=== PATIENT | female | born 1970 | race Asian ===

== ENCOUNTER 2024-02-21 13:18 | Emergency (ER) | payer BC, SELFPAY ==
[2024-02-21 13:21] VITALS: BP 139/93
--- NOTE | 2024-02-21 14:06 | ED.GENMED ---
History of Present Illness
General
Chief Complaint: Heart Rate Problem
Source: patient
Time Seen by Provider: 02/21/24 13:42
History of Present Illness
History of Present Illness:
53-year-old female presents emergency department with a wide range of complaints that have been ongoing for a long period of time. She just returned from [place] yesterday. She reports episodes of 'strange needles' that spread across her chest from
time to time, most recently a few days ago. However, about 2 hours ago she said she felt like something was kind of like 'stuck' in the upper part of her chest, now almost fully resolved associated with slight dyspnea. She is jet lag and said that
yesterday her heart was racing, not associated with chest pain, lightheadedness, or other complaints. She also notes that she just feels a vague subtle sense of numbness around her lips and tongue for the last few hours as well. No leg swelling,
pleuritic chest pain, fever, chills, cough, swelling
Past History
Past History
ED Past Medical History: None
ED Past Surgical History: None
Social History
Tobacco: Non-smoker
Drug: None
Personal:
Living: with family
Employment: Employed
Phy Exam
Physical Exam
Physical Exam:
aao times three, in nad
PERRL, mmm, o/p clear
neck supple
hrt rrr, no m/g/r
lung cta
abd soft, nt, nd
extrem no c/c/e
skin warm, well perfused
psych appropriate
neuro intact
Scores
Heart Score for Chest Pain Patients
STEMI patient?: No
History: Slightly or Non-Suspicious
ECG: Nonspecific Repolarization
Age: >45 - <65 years
Risk Factors: No Risk Factors
Troponin: </= Normal Limit
Heart Score for Chest Pain Patients: 2
Heart Score Risk: 2.5% MACE over next 6 weeks
Course
Orders/Labs/Results
Orders:
Orders
02/21/24 13:23
EKG [Electrocardiogram (*1)] Urgent
Reason for Study: Palpitations
EKG- Treatment ONCE
02/21/24 14:03
Cardiac Monitoring- Treatment ONCE
Pulse Ox/cont/shift [RESP] Stat
Quantity: 1
02/21/24 14:08
Complete Blood Count/No Diff Urgent
Comprehensive Metabolic Panel Urgent
Magnesium Urgent
TSH Urgent
02/21/24 14:16
D-Dimer Urgent
Troponin I Urgent
02/21/24 17:15
Troponin I Urgent
Abnormal Lab Results
02/21/24
14:08
RBC 3.95 L 10^6/uL
(4.20-5.40)
Hct 36.6 L %
(37.0-47.0)
MCH 31.9 H pg
(27.0-31.0)
Glucose 114 H mg/dl
(70-99)
02/21/24 14:08
02/21/24 14:08
Vital Signs
Initial and Last Documented VS:
Initial Vital Signs
Temp Pulse Resp BP Pulse Ox
98.1 F 77 18 139/93 97
02/21/24 13:21 02/21/24 13:21 02/21/24 13:21 02/21/24 13:21 02/21/24 13:21
Last Documented Vital Signs
Temp Pulse Resp BP Pulse Ox
98.1 F 59 14 113/74 98
02/21/24 13:21 02/21/24 15:31 02/21/24 15:31 02/21/24 15:31 02/21/24 15:31
Update Note
Update Note:
Patient presents to the Emergency Department with palpitations, chest discomfort
Number and Complexity of Problems Addressed at the Encounter
� Chronic conditions affecting care:
� Acute Exacerbation and/or Progression of Chronic Illness:
� Differential Diagnosis includes: but not limited to electrolyte disturbance, pe, acs, pleurisy, etc.
Amount and/or Complexity of Data to be Reviewed and Analyzed
� I performed an independent evaluation of and my interpretation is:
EKG:read by me, nsr, nl rate, nl axis, no ischemia
CT:
Xrays:
Laboratory Studies:
Other:
� Review of other/old records reveals:
� Clinical information was obtained by an independent historian:
� Prescriptions/Medications Considered but not given:
� Further testing considered but not performed:
Risk of Complications and/or Morbidity or Mortality of Patient Management
� Social determinants of health affecting care:
� Discussion with other providers (PCP, Hospitalists, Consultants, etc):
� Escalation of care including admission/observation vs risk of discharge considered:
ED Attending Note
-
Portions of this chart may have been created with voice recognition software.� Occasional wrong word or��sound alike� substitutions may have occurred due to the inherent limitations of voice recognition software.
Discharge Plan
Departure
Patient with high blood pressure during this ER visit?: Yes
Condition: Good
Discharge Problem:
Chest pain, palpitations
Instructions: Palpitations (DC), BLOOD PRESSURE, Chest Pain
Prescriptions:
No Action
silver sulfadiazine [SSD] 1 APPLIC cream
1 applic topical DAILY Qty: 50 0RF
hydrocodone-acetaminophen 5 MG/500 MG tablet
1 tab PO .Q4-6HPRN PRN (Reason: PAIN) Qty: 20 0RF
Referrals:
Harman Graf MD [Active] - Next open appointment
Hong Newman MD [Family Provider] - Follow up in 2-3 days
Activity Restrictions/Additional Instructions:
IF YOU DEVELOP INCREASING/NEW/PERSISTENT PAIN, FEVER, VOMITING, DIZZINESS, SWELLING, TROUBLE BREATHING OR OTHER WORRISOME SIGNS, GO TO THE ER IMMEDIATELY!
Interventions
Interventions:
*Risk Screen - Suicide Last Done: 02/21/24 13:21
*General Assessment Last Done: 02/21/24 13:21
*Neglect/Abuse Screening Last Done: 02/21/24 13:21
*ED COVID-19 Vaccine History Last Done: 02/21/24 13:21
ED- Cardiac Assessment Last Done: 02/21/24 14:14
ED- Pulmonary Assessment Last Done: 02/21/24 14:14
Discharge Date and Time
Print Language: SERBIAN
[2024-02-21 14:13] VITALS: BMI 21.4
[2024-02-21 14:24] LABS: Hematocrit 36.6 % (37.0-47.0); Hemoglobin 12.6 g/dL (12.0-16.0); Mean Corp Hgb Conc. 34.4 g/dL (33.0-37.0); Mean Corpuscular Hgb 31.9 pg (27.0-31.0); Mean Corpuscular Volume 92.7 fL (81.0-99.0); Mean Platelet Volume 8.3 fL (7.4-10.4); Platelet Count 348 10^3/uL (130-400); Red Blood Cell Count 3.95 10^6/uL (4.20-5.40); Red Cell Dist. Width 12.4 % (11.5-14.5); White Blood Cell Count 7.4 10^3/uL (4.8-10.8)
[2024-02-21 14:40] LABS: ALT (SGPT) 20 U/L (0-35); AST (SGOT) 24 U/L (14-36); Albumin 4.6 g/dl (3.5-5.0); Alkaline Phosphatase 75 U/L (38-126); Blood Urea Nitrogen 17 mg/dl (7-17); Calcium 9.8 mg/dl (8.4-10.2); Carbon Dioxide 25 mmol/L (22-30); Chloride 103 mmol/L (98-107); Estimated Creatinine Clearance 64 ml/min; Glucose 114 mg/dl (70-99); Magnesium 2.3 mg/dl (1.6-2.3); Potassium 3.7 mmol/L (3.5-5.1); Sodium 140 mmol/L (135-145); Total Protein 7.3 g/dl (6.3-8.2); eGFR > 60.00
[2024-02-21 14:49] LABS: Troponin I < 0.012 ng/ml
[2024-02-21 15:31] VITALS: BP 113/74
[2024-02-21 16:00] VITALS: BP 119/86
[2024-02-21 17:00] VITALS: BP 104/84
[2024-02-21 17:49] LABS: Troponin I < 0.012 ng/ml
== END 2024-02-21 17:55 | disposition home or self-care (01) ==
LOC: EMR 13:18
PROVIDERS: EMERGENCY PHYSICIAN Emergency Medicine; FAMILY PHYSICIAN Family Medicine
DX: R07.89 Other chest pain (principal); R00.2 Palpitations; R06.00 Dyspnea, unspecified; R03.0 Elevated blood-pressure reading, without diagnosis of hypertension; G47.25 Circadian rhythm sleep disorder, jet lag type
CPT/HCPCS: 99284; 94760; 80053; 83735; 84443; 84484; 85027; 85379; 93005